=== PATIENT | female | born 1985 | race African-American/Black ===

== ENCOUNTER 2020-05-23 14:30 | Emergency (ER) | payer OTHER ==
[~2020-05-23] VITALS: Ht 160 cm; Wt 90.9 kg
[2020-05-23] MEDS ORDERED: DIPH25CA85 PO (14:37)
[2020-05-23 14:41] VITALS: BP 130/90
[2020-05-23] MEDS ORDERED: DEXAMETHASONE 4 MG TABLET PO ONE (15:15)
== END 2020-05-23 16:26 | disposition left against medical advice (07) ==
LOC: EMS 14:30
DX: J02.9 Acute pharyngitis, unspecified (principal); F17.210 Nicotine dependence, cigarettes, uncomplicated; F32.9 Major depressive disorder, single episode, unspecified
CPT/HCPCS: 99281; 99285; Z7502